=== PATIENT | female | born 1965 | race Caucasian/White ===

== ENCOUNTER 2016-05-06 20:28 | Inpatient (IN) | payer MEDICAID ==
[~2016-05-06] VITALS: Ht 157.5 cm; Wt 81.6 kg
[2016-05-06 20:44] VITALS: BP 170/90
--- NOTE | 2016-05-06 22:10 | NUR ---
TO ER BED 6
--- NOTE | 2016-05-06 22:15 | NUR ---
50Y F PRESENT TO ER C/O OF LT FLANK PAIN. NO N/V/D. AFEBILE , V/S WNL.
[2016-05-06] MEDS ORDERED: NACL 0.9% 1,000 ML IV ONE (22:40)
[2016-05-06] MEDS ORDERED: KETOROLAC 30 MG/ML VIAL IVP ONE (22:40)
[2016-05-06 23:02] LABS: BASOPHILS # (AUTO) 0.1 K/uL (0.00-0.22); BASOPHILS % (AUTO) 0.9 % (0.0-2.0); EOSINOPHILS # (AUTO) 0.3 K/uL (0-0.4); EOSINOPHILS % (AUTO) 2.4 % (0.0-4.0); HEMATOCRIT 39.6 % (36-48); HEMOGLOBIN 13.4 g/dL (12.0-16.0); LYMPHOCYTES # (AUTO) 2.4 K/uL (2.5-16.5); LYMPHOCYTES % (AUTO) 21.9 % (20.5-51.1); MEAN CORPUSCULAR HEMOGLOBIN 30 pg (27-31); MEAN CORPUSCULAR HGB CONC 34 g/dL (33-37); MEAN CORPUSCULAR VOLUME 90 fL (80-94); MONOCYTES # (AUTO) 0.7 K/uL (0.8-1.0); MONOCYTES % (AUTO) 5.9 % (1.7-9.3); NEUTROPHILS # (AUTO) 7.6 K/uL (1.8-7.7); NEUTROPHILS % (AUTO) 68.9 % (42.2-75.2); PLATELET COUNT (AUTO) 283 K/uL (140-450); RED CELL DISTRIBUTION WIDTH 11.4 % (11.6-13.7); WHITE BLOOD COUNT (AUTO) 11.1 K/uL (4.8-10.8)
[2016-05-06 23:03] LABS: APPEARANCE,URINE CLOUDY (CLEAR); BILIRUBIN,URINE NEGATIVE (NEGATIVE); BLOOD, URINE 3+ (NEGATIVE); COLOR,URINE BROWN (YELLOW); LEUKOCYTE ESTERASE ,URINE TRACE (NEGATIVE); NITRITE, URINE NEGATIVE (NEGATIVE); PH,URINE 5.5 (5.0-9.0); PROTEIN,URINE 1+ (NEGATIVE); UGLUCOSE NEGATIVE (NEGATIVE); UROBILINOGEN,URINE 0.2 EU/dL (0.2 - 1)
[2016-05-06 23:15] LABS: ANION GAP 9.4 (8-16); CALCIUM 8.5 mg/dL (8.5-10.1); CARBON DIOXIDE 29.1 mmol/L (21-32); CREATININE 0.7 mg/dL (0.6-1.3); POTASSIUM 3.5 mmol/L (3.5-5.1)
[2016-05-06 23:21] LABS: ALBUMIN 3.3 g/dL (3.4-5.0); TOTAL BILIRUBIN 0.2 mg/dL (0.0-1.0); TOTAL PROTEIN, SERUM 7.3 g/dL (6.4-8.2)
[2016-05-06 23:27] LABS: RBC,URINE TOO NUMEROUS TO COUN /HPF (0-5)
[2016-05-06 23:28] LABS: BACTERIA,URINE OCCASSIONAL /HPF (None Seen); MUCUS,URINE 2+ /LPF (None Seen); SQUAMOUS EPITHELIAL CELL,UR 4-10 (MOD) /LPF (0-3 (FEW))
--- NOTE | 2016-05-07 00:25 | NUR ---
Note minda in EDM - 05/07/16 at 0619 by LIZBETH 50Y F PRESENT TO ER C/O OF LT FLANK PAIN. NO N/V/D. AFEBILE , V/S WNL.
[2016-05-07] MEDS ORDERED: cefTRIAXone 1,000 MG VIAL ONE (02:22)
[2016-05-07] MEDS ORDERED: MORPHINE SULFATE 2 MG/ML SYR IVP PRN (05:30)
[2016-05-07] MEDS ORDERED: ONDANSETRON 4 MG/2 ML VIAL IVP PRN (05:30)
[2016-05-07] MEDS ORDERED: LISI5TAB18 PO (06:33)
[2016-05-07] MEDS ORDERED: GLIP5TAB4 PO (06:33)
[2016-05-07] MEDS ORDERED: METF500T PO (06:33)
--- NOTE | 2016-05-07 06:46 | NUR ---
Patient will be admitted to care of DR BABIN. Admited to TELEMETRY. Will go to room 121. Belongings list completed. Report to JOHNY SAHNI.
[2016-05-07] MEDS ORDERED: KETOROLAC 30 MG/ML VIAL IM SCH (06:56)
[2016-05-07] MEDS ORDERED: NACL 0.9% 1,000 ML IV SCH (06:57)
--- NOTE | 2016-05-07 07:35 | NUR ---
RECEIVED PT FROM ED, VIA JAVIER, PT IS A/OX4, PT ABLE TO AMBULATE, INITIAL ASSESSMENT DONE, SKIN IS INTACT, IV ON LT AC, PATENT, INTACT, INFUSING WELL NO S/S OF RESPIRATORY DISTRESS OR DISCOMFORT NOTED, SAFETY/FALL PRECAUTIONS IN PLACE, DISCUSSED PLAN OF CARE WITH PT, PT VERBALIZED UNDERSTANDING. ORIENTED PT TO THE ROOM, CALL LIGHT IS WITHIN REACH, WILL CONTINUE TO MONITOR.
[2016-05-07 08:00] VITALS: BP 162/90
[2016-05-07] MEDS ORDERED: TAMSULOSIN 0.4 MG CAP PO SCH (08:00)
--- NOTE | 2016-05-07 08:00 | NUR ---
DUE MEDS GIVEN. PT TOLERATED WELL. CALL LIGHT WITHIN REACH. WILL CONTINUE TO MONITOR.
--- NOTE | 2016-05-07 08:02 | NUR ---
PATIENT HAS BEEN SCREENED AND CATEGORIZED MODERATE NUTRITION RISK. PATIENT WILL BE SEEN WITHIN 3-5 DAYS OF ADMISSION. 05/09/16-05/11/[address]
--- NOTE | 2016-05-07 11:15 | NUR ---
PT RESTING IN BED, NO S/S OF RESPIRATORY DISTRESS OR DISCOMFORT NOTED, ALL NEEDS MET AT THIS TIME, CALL LIGHT WITHIN REACH, FAMILY AT BEDSIDE, WILL CONTINUE TO MONITOR.
[2016-05-07 12:00] VITALS: BP 158/86
--- NOTE | 2016-05-07 13:20 | NUR ---
PT LEFT AMA, AMA PAPERWORK SIGNED, DR. JORDAN TALKED TO PT, PER DR. JORDAN PT IS FEELING FINE, NO COMPLAINTS OF PAIN AND WANTED TO LEAVE THE HOSPITAL AMA. TALKED TO PT EXPLAINED RISK AND DISADVANTAGES OF LEAVING HOSPITAL AGAINST MEDICAL ADVICE, PT VERBALIZED UNDERSTANDING, BUT STILL WANTED TO LEAVE THE HOSPITAL. REMOVED IV, IV CATHETER TIP INTACT, TELE AND ID WRIST BAND REMOVED, PT STABLE UPON LEAVING.
== END 2016-05-07 13:20 | disposition left against medical advice (07) | DRG 465 ==
LOC: MED 20:28 → MTU 05-07 05:54
PROVIDERS: ADMIT Family Medicine; ATTEND Family Medicine
DX: N13.2 Hydronephrosis with renal and ureteral calculous obstruction (principal); N17.0 Acute kidney failure with tubular necrosis; E11.9 Type 2 diabetes mellitus without complications; I16.0 Hypertensive urgency; E44.0 Moderate protein-calorie malnutrition; N39.0 Urinary tract infection, site not specified; E66.9 Obesity, unspecified; Z53.21 Procedure and treatment not carried out due to patient leaving prior to being seen by health care provider; Z79.899 Other long term (current) drug therapy; Z79.84 Long term (current) use of oral hypoglycemic drugs; Z68.32 Body mass index [BMI] 32.0-32.9, adult
CPT/HCPCS: 36415; 80053; 81001; 85025; 87081; 87086; 96361; 96365; 96375; 99285; J0696; J1885; J7030; J7060